=== PATIENT | male | born 1985 | race Caucasian/White ===

== ENCOUNTER 2016-11-23 11:09 | Emergency (ER) | payer OTHER ==
[~2016-11-23] VITALS: Ht 175.2 cm; Wt 68.9 kg
[~2016-11-23 11:09] MED LIST: AMOXICILLIN500 MG PO; CIPRO500 MG PO; CLEOCIN HCL150 MG PO; CLINDAMYCIN150 MG PO; COMPAZINE10 MG PO; CYCLOBENZAPRINE10 MG PO; FLEXERIL10 MG PO; FLEXERIL5 MG PO; FLOMAX0.4 MG PO; HYDROCODONE BIT1 T11 PO; IBUPROFEN600 MG PO; KEFLEX500 MG PO; MOTRIN800 MG PO; Motrin,Rufen800 MG PO; NAPROSYN500 MG PO; NKHM; NORCO 10-325 T1 EACH PO; NORCO 325 MG-51 TAB PO; NORFLEX100 MG PO; PARAFON FORTE500 MG PO; PEN-VEE K500 MG PO; PREDNICOT20 MG PO; Peridex 473 ML473 ML PO; ULTRAM50 MG PO; VICODIN 5/500 505 MG PO; VOLTAREN75 MG PO; Zofran4 MG PO
[2016-11-23 11:18] VITALS: BP 166/83
[2016-11-23] MEDS ORDERED: CYCLOBENZAPRINE10 MG PO (11:49)
[2016-11-23] MEDS ORDERED: HYDROCODONE BIT1 T11 PO (11:49)
[2016-11-23] MEDS ORDERED: PREDNISONE50 MG PO (11:49)
== END 2016-11-23 12:44 | disposition home or self-care (01) ==
LOC: ED 11:09
DX: S39.012A Strain of muscle, fascia and tendon of lower back, initial encounter (principal); F17.200 Nicotine dependence, unspecified, uncomplicated; Z88.6 Allergy status to analgesic agent; Z79.899 Other long term (current) drug therapy; W18.30XA Fall on same level, unspecified, initial encounter; Y93.A6 Activity, grass drills; Y92.73 Farm field as the place of occurrence of the external cause; Y99.0 Civilian activity done for income or pay

== ENCOUNTER → 2017-02-05 | Outpatient (CLI) | payer OTHER ==
[~2017-02-05] MED LIST changes: +PREDNISONE50 MG PO
== END | disposition home or self-care (01) ==
LOC: CARD 14:08
DX: F15.20 Other stimulant dependence, uncomplicated (principal)

== ENCOUNTER 2017-05-28 10:05 | Emergency (ER) | payer OTHER ==
[~2017-05-28] VITALS: Ht 175.2 cm; Wt 68.9 kg
[2017-05-28 10:15] VITALS: BP 152/95
[2017-05-28] MEDS ORDERED: NORCO 5-325 TA1 EACH PO (11:49)
== END 2017-05-28 13:27 | disposition home or self-care (01) ==
LOC: ED 10:05
DX: S62.616A Displaced fracture of proximal phalanx of right little finger, initial encounter for closed fracture (principal); F17.200 Nicotine dependence, unspecified, uncomplicated; Z88.6 Allergy status to analgesic agent; X58.XXXA Exposure to other specified factors, initial encounter; Y93.89 Activity, other specified; Y92.89 Other specified places as the place of occurrence of the external cause; Y99.8 Other external cause status

== ENCOUNTER 2018-10-23 01:37 | Emergency (ER) | payer OTHER ==
[~2018-10-23] VITALS: Ht 175.2 cm; Wt 68.0 kg
[2018-10-23 01:37] VITALS: BP 159/105
[~2018-10-23 01:37] MED LIST changes: +NORCO 5-325 TA1 EACH PO
[2018-10-23] MEDS ORDERED: Motrin,Rufen800 MG PO (02:50)
== END 2018-10-23 03:08 | disposition home or self-care (01) ==
LOC: ED 01:37
DX: S01.81XA Laceration without foreign body of other part of head, initial encounter (principal); Z88.6 Allergy status to analgesic agent; Y04.0XXA Assault by unarmed brawl or fight, initial encounter; Y93.89 Activity, other specified; Y92.89 Other specified places as the place of occurrence of the external cause; Y99.9 Unspecified external cause status

== ENCOUNTER 2018-10-30 12:09 | Emergency (ER) | payer OTHER ==
[~2018-10-30] VITALS: Ht 175.2 cm; Wt 72.6 kg
[2018-10-30 12:11] VITALS: BP 159/99
== END 2018-10-30 12:36 | disposition home or self-care (01) ==
LOC: ED 12:09
DX: S01.81XD Laceration without foreign body of other part of head, subsequent encounter (principal); Z88.6 Allergy status to analgesic agent; F17.200 Nicotine dependence, unspecified, uncomplicated; Y04.0XXD Assault by unarmed brawl or fight, subsequent encounter